=== PATIENT | male | born 1950 | race Caucasian/White ===

== ENCOUNTER → 2018-04-28 08:49 | Outpatient (CLI) | payer MEDICARE, OTHER, SELFPAY ==
[2018-04-28 09:57] LABS: Add Manual Diff / Slide Review NO; Basophils Absolute Auto 100 /uL (0-100); Basophils Percent Auto 0.8 % (0-2); Eosinophils Absolute Auto 200 /uL (0-450); Eosinophils Percent Auto 2.8 % (2-4); Hematocrit 43.5 % (41-53); Hemoglobin 14.2 g/dL (13.5-17.5); Lymphocytes Absolute Auto 2600 /uL (1100-4500); Lymphocytes Percent Auto 32.2 % (25-40); Mean Corpuscular HGB Conc 32.5 % (30-36); Mean Corpuscular Hemoglobin 27.3 PG (26-34); Monocytes Absolute Auto 500 /uL (0-900); Monocytes Percent Auto 6.5 % (3-14); Neutrophils Absolute Auto 4600 /uL (1500-7000); Neutrophils Percent Auto 57.7 % (50-75); Platelet Count 284 X10^3/uL (150-400); Red Blood Cell Count 5.19 X10^6/uL (4.5-5.9); Red Cell Distribution Width 14.9 % (11.6-14.8)
[2018-04-28 10:44] LABS: Alanine Aminotransferase 34 IU/L (21-72); Albumin 4.2 g/dL (3.5-5.0); Albumin Globulin Ratio 1.3 (1.0-2.8); Alkaline Phosphatase 82 U/L (38-126); Aspartate Aminotransferase 29 IU/L (17-59); Bilirubin Total 0.7 mg/dL (0.2-1.3); Blood Urea Nitrogen 20 mg/dL (9-20); Calcium 8.8 mg/dL (8.4-10.2); Carbon Dioxide 29 mmol/L (22-32); Chloride 103 mmol/L (98-107); Cholesterol 155 mg/dL (140-199); Estimated Glomerular Filt Rate > 60.0 mL/min (>60); Globulin 3.2 g/dL (1.7-4.1); Glucose 89 mg/dL (80-110); HDL Cholesterol 40 mg/dL (40-60); HEMOLYSIS < 15 (0-50); LDL Cholesterol Calculated 93 mg/dL (<100); Potassium 4.7 mmol/L (3.4-5.1); Sodium 143 mmol/L (137-145); Total Protein 7.4 g/dL (6.3-8.2); Triglycerides 110 mg/dL (35-150)
[2018-04-28 11:11] LABS: Prostate Specific Antigen Scrn 0.468 ng/mL (0.1-4.0)
[2018-04-28 11:12] LABS: Thyroid Stimulating Hormone 1.66 uIU/mL (0.47-4.68)
== END ==
PROVIDERS: Family Provider Family Medicine; PCP Family Medicine; Visit Provider Family Medicine
DX: E78.2 Mixed hyperlipidemia (principal); Z12.5 Encounter for screening for malignant neoplasm of prostate; Z13.0 Encounter for screening for diseases of the blood and blood-forming organs and certain disorders involving the immune mechanism; Z13.29 Encounter for screening for other suspected endocrine disorder
CPT/HCPCS: 36415; 80053; 80061; 84443; 85025; G0103

== ENCOUNTER → 2018-05-05 11:17 | Outpatient (CLI) | payer MEDICARE, OTHER, SELFPAY ==
--- NOTE | 2018-05-05 11:20 | DI.RAD.S_ITS ---
PROCEDURE: XR CHEST 2V INDICATIONS: cough TECHNIQUE: 2 views of the chest were acquired. COMPARISON: [facility], , CHEST 2 VIEW, 08/03/2012, 10:52. FINDINGS: Surgical changes and devices: None. Lungs and pleura: No pleural effusions or pneumothorax. Lungs are clear. Mediastinum: Mediastinal contours are normal. Heart size is normal. Bones and chest wall: No suspicious bony abnormalities. Soft tissues appear unremarkable. IMPRESSION: Normal for age, source of current cough symptoms is not seen. Dictated by: Dung Garcia M.D. on 05/05/2018 at 12:46 Approved by: Dung Garcia M.D. on 05/05/2018 at 12:47
== END ==
PROVIDERS: Family Provider Family Medicine; PCP Family Medicine; Visit Provider Family Medicine
DX: R05 Cough (principal)
CPT/HCPCS: 71046

== ENCOUNTER 2018-08-12 11:38 | Emergency (ER) | payer MEDICARE, OTHER, SELFPAY ==
[2018-08-12 11:43] VITALS: BP 153/80; PULSE 71; RESP 20; TEMP 36.2; O2SAT 100; BMI 33.7
--- NOTE | 2018-08-12 12:33 | ED.EXTPRO ---
HPI - Extremity Problem <Jennie Lyle PA-C - Last Filed: 08/12/18 21:36> General Chief complaint: Extremity Problem,Nontraumatic Stated complaint: thinks blood clot in his legs. Time Seen by Provider: 08/12/18 12:23 Source: patient Mode of arrival: ambulatory Limitations: no limitations History of Present Illness HPI Narrative: This 67-year-old male states he came in for left lower extremity evaluation on the advice of a nurse friend due to concern for possible blood clot. He states that he noticed a lot of swelling in the left lower leg the day after he returned home from [place] almost 2 weeks ago. He states that was associated with 2 days of chills and sweats and fever up to 102. He noticed crampy pain in the lateral part of the lower leg, and states it was swollen to twice is normal size. He states he had some general malaise but never developed any respiratory symptoms such as cough, no GI symptoms such as diarrhea. He states that this resolved on its own. He states that he did not have any bites. He states no injury to the leg. He states he has had problems with both of his knees but has not been bothering him since his last surgery years ago. He states that he did have some redness along the area at the time as well. he states that this has gradually gotten better, swelling is minimal, and now pain is only present if he puts pressure on the lateral part of the lower leg. He denies pain in the posterior calf. He denies any chest pain or dyspnea, states he is going about his usual activities. he does not have any personal or family history of blood clots Related Data Home Medications Medication Instructions Recorded Confirmed ibuprofen 0 PO BIDP #0 08/25/12 05/05/18 Previous Rx's Medication Instructions Recorded omeprazole 20 mg PO Q DAY PRN PRN #90 tab 12/30/16 atorvastatin 10 mg tablet 10 mg PO HS #90 tab 05/05/18 Review of Systems <CARA Hays Last Filed: 08/12/18 21:36> Review of Systems ROS Unobtainable: All systems reviewed & are unremarkable except as noted in HPI and below PFSH <CARA Hays Last Filed: 08/12/18 21:36> Medical History (Updated 08/12/18 @ 13:19 by Jennie Lyle PA-C) GERD (gastroesophageal reflux disease) (Acute) Mixed hyperlipidemia (12/30/16) Surgical History (Updated 08/12/18 @ 12:51 by Jennie Lyle PA-C) Status post knee surgery Status post knee surgery Presence of surgical screw in hand (Resolved) Family History (Updated 06/16/14 @ 00:00 by Conversion Provider) Father Heart disease Social History Smoking Status: Never smoker Family History (Updated 06/16/14 @ 00:00 by Conversion Provider) Father Heart disease Social History Smoking Status: Never smoker Exam <Jennie Lyle PA-C - Last Filed: 08/12/18 21:36> Narrative Exam Narrative: GENERAL APPEARANCE: Patient sitting comfortably, in no distress. NECK/THYROID: Neck supple LUNGS: Clear to auscultation bilaterally. HEART: Regular rate and rhythm without murmur, normal S1, S2, no S3 or S4. EXTREMITIES: No cyanosis, pedal pulses intact. numerous small varicosities noted bilaterally. There is mild left pedal edema, trace on the right. No proximal edema. No calf tenderness. Tender along the course of the lateral fibular tendon with palpation, no tenderness elsewhere. NEUROLOGIC: Alert and oriented, normal speech and coordination. DERMATOLOGIC: Small exocoriations bilateral LEs, no erythema Initial Vital Signs Initial Vital Signs: Vital Signs Temperature 97.1 F L 08/12/18 11:43 Pulse Rate 71 08/12/18 11:43 Respiratory Rate 20 08/12/18 11:43 Blood Pressure 153/80 H 08/12/18 11:43 Pulse Oximetry 100 08/12/18 11:43 <Maye Osuna DO - Last Filed: 08/14/18 08:28> Initial Vital Signs Initial Vital Signs: Vital Signs Temperature 97.1 F L 08/12/18 11:43 Pulse Rate 71 08/12/18 11:43 Respiratory Rate 20 08/12/18 11:43 Blood Pressure 153/80 H 08/12/18 11:43 Pulse Oximetry 100 08/12/18 11:43 Course <Jennie Lyle PA-C - Last Filed: 08/12/18 21:36> Orders Ordered: ED Orders 08/12/18 12:44 US periph venous low extrem lt Stat Vital Signs - 8 hr 08/12/18 11:43 Temperature 97.1 F L Pulse Rate 71 Respiratory Rate 20 Blood Pressure 153/80 H Pulse Oximetry 100 <Maye Osuna DO - Last Filed: 08/14/18 08:28> Orders Ordered: ED Orders 08/12/18 12:44 US periph venous low extrem lt Stat Vital Signs - 8 hr 08/12/18 11:43 Temperature 97.1 F L Pulse Rate 71 Respiratory Rate 20 Blood Pressure 153/80 H Pulse Oximetry 100 <Maye Osuna DO - Last Filed: 08/14/18 08:28> Imaging Data Venous US: Radiologist's impression: PROCEDURE: US PERIPH VENOUS LOW EXTREM LT INDICATIONS: PAIN, EDEMA TECHNIQUE: Real-time imaging, as well as color and pulse Doppler interrogation, were performed of the lower extremity deep veins from the inguinal ligament to the popliteal fossa. COMPARISON: None. FINDINGS: The common femoral, femoral and popliteal veins are normally compressible, and free of intraluminal thrombus. Color and pulse Doppler demonstrate normal phasic intraluminal flow. There is normal augmentation response to distal compression maneuver. IMPRESSION: No evidence of deep venous thrombosis. Dictated by: Christiano Reaves M.D. on 08/12/2018 at 13:45 Discharge Plan Departure Patient Disposition: Home Clinical Impression: Lower extremity edema, Lower extremity pain, left Discharge Date/Time: 08/12/18 13:33 Interventions: ED Discharge Assessment Last Done: 08/12/18 13:33 Instructions: DI for Peripheral Edema, Unilateral Activity Restrictions/Additional Instructions: Please return as we talked about if you have any acutely worsening symptoms or new symptoms such as chest pain or difficulty breathing. Otherwise, please monitor this to make sure it continues to resolve. Follow up with your PCP in the next couple of weeks for recheck. You may want to wear some compression stockings when your sitting for long periods or flying to help with swelling. Prescriptions: No Action ibuprofen 200 MG tablet PO BIDP Qty: 0 RF: 0 omeprazole 20 MG capsule,delayed release(DR/EC) 20 mg PO Q DAY PRN PRNQty: 90 RF: 3 atorvastatin [Lipitor] 10 mg tablet 10 mg PO HS Qty: 90 RF: 3 Referrals: Michael Goldstein MD [Primary Care Provider] - <Maye Osuna DO - Last Filed: 08/14/18 08:28> Cosign ED Attending Hamlet Attestation: I was immediately available in the department for consultation. Documentation has been reviewed. I agree with assessment and plan.
--- NOTE | 2018-08-12 12:44 | DI.US.S_ITS ---
PROCEDURE: US PERIPH VENOUS LOW EXTREM LT INDICATIONS: PAIN, EDEMA TECHNIQUE: Real-time imaging, as well as color and pulse Doppler interrogation, were performed of the lower extremity deep veins from the inguinal ligament to the popliteal fossa. COMPARISON: None. FINDINGS: The common femoral, femoral and popliteal veins are normally compressible, and free of intraluminal thrombus. Color and pulse Doppler demonstrate normal phasic intraluminal flow. There is normal augmentation response to distal compression maneuver. IMPRESSION: No evidence of deep venous thrombosis. Dictated by: Christiano Reaves M.D. on 08/12/2018 at 13:45 Approved by: Christiano Reaves M.D. on 08/12/2018 at 13:46
--- NOTE | 2018-08-12 12:53 | ED_ITS ---
HPI - Extremity Problem <Jennie Lyle PA-C - Last Filed: 08/12/18 21:36> General Chief complaint: Extremity Problem,Nontraumatic Stated complaint: thinks blood clot in his legs. Time Seen by Provider: 08/12/18 12:23 Source: patient Mode of arrival: ambulatory Limitations: no limitations History of Present Illness HPI Narrative: This 67-year-old male states he came in for left lower extremity evaluation on the advice of a nurse friend due to concern for possible blood clot. He states that he noticed a lot of swelling in the left lower leg the day after he returned home from [place] almost 2 weeks ago. He states that was associated with 2 days of chills and sweats and fever up to 102. He noticed crampy pain in the lateral part of the lower leg, and states it was swollen to twice is normal size. He states he had some general malaise but never developed any respiratory symptoms such as cough, no GI symptoms such as diarrhea. He states that this resolved on its own. He states that he did not have any bites. He states no injury to the leg. He states he has had problems with both of his knees but has not been bothering him since his last surgery years ago. He st ates that he did have some redness along the area at the time as well. he states that this has gradually gotten better, swelling is minimal, and now pain is only present if he puts pressure on the lateral part of the lower leg. He denies pain in the posterior calf. He denies any chest pain or dyspnea, states he is going about his usual activities. he does not have any personal or family history of blood clots Related Data Home Medications Medication Instructions Recorded Confirmed ibuprofen 0 PO BIDP #0 08/25/12 05/05/18 Previous Rx's Medication Instructions Recorded omeprazole 20 mg PO Q DAY PRN PRN #90 tab 12/30/16 atorvastatin 10 mg tablet 10 mg PO HS #90 tab 05/05/18 Review of Systems <Jennie Lyle PA-C - Last Filed: 08/12/18 21:36> Review of Systems ROS Unobtainable: All systems reviewed & are unremarkable except as noted in HPI and below PFSH <Jennie Lyle PA-C - Last Filed: 08/12/18 21:36> Medical History (Updated 08/12/18 @ 13:19 by Jennie Lyle PA-C) GERD (gastroesophageal reflux disease) (Acute) Mixed hyperlipidemia (12/30/16) Surgical History (Updated 08/12/18 @ 12:51 by Jennie Lyle PA-C) Status post knee surgery Status post knee surgery Presence of surgical screw in hand (Resolved) Family History (Updated 06/16/14 @ 00:00 by Conversion Provider) Father Heart disease Social History Smoking Status: Never smoker Family History (Updated 06/16/14 @ 00:00 by Conversion Provider) Father Heart disease Social History Smoking Status: Never smoker Exam <Jennie Lyle PA-C - Last Filed: 08/12/18 21:36> Narrative Exam Narrative: GENERAL APPEARANCE: Patient sitting comfortably, in no distress. NECK/THYROID: Neck supple LUNGS: Clear to auscultation bilaterally. HEART: Regular rate and rhythm without murmur, normal S1, S2, no S3 or S4. EXTREMITIES: No cyanosis, pedal pulses intact. numerous small varicosities noted bilaterally. There is mild left pedal edema, trace on the right. No pr oximal edema. No calf tenderness. Tender along the course of the lateral fibular tendon with palpation, no tenderness elsewhere. NEUROLOGIC: Alert and oriented, normal speech and coordination. DERMATOLOGIC: Small exocoriations bilateral LEs, no erythema Initial Vital Signs Initial Vital Signs: Vital Signs Temperature 97.1 F L 08/12/18 11:43 Pulse Rate 71 08/12/18 11:43 Respiratory Rate 20 08/12/18 11:43 Blood Pressure 153/80 H 08/12/18 11:43 Pulse Oximetry 100 08/12/18 11:43 <Maye Osuna DO - Last Filed: 08/14/18 08:28> Initial Vital Signs Initial Vital Signs: Vital Signs Temperature 97.1 F L 08/12/18 11:43 Pulse Rate 71 08/12/18 11:43 Respiratory Rate 20 08/12/18 11:43 Blood Pressure 153/80 H 08/12/18 11:43 Pulse Oximetry 100 08/12/18 11:43 Course <Jennie Lyle PA-C - Last Filed: 08/12/18 21:36> Orders Ordered: ED Orders 08/12/18 12:44 US periph venous low extrem lt Stat Vital Signs - 8 hr 08/12/18 11:43 Temperature 97.1 F L Pulse Rate 71 Respiratory Rate 20 Blood Pressure 153/80 H Pulse Oximetry 100 <Maye Osuna DO - Last Filed: 08/14/18 08:28> Orders Ordered: ED Orders 08/12/18 12:44 US periph venous low extrem lt Stat Vital Signs - 8 hr 08/12/18 11:43 Temperature 97.1 F L Pulse Rate 71 Respiratory Rate 20 Blood Pressure 153/80 H Pulse Oximetry 100 <Maye Osuna DO - Last Filed: 08/14/18 08:28> Imaging Data Venous US: Radiologist's impression: PROCEDURE: US PERIPH VENOUS LOW EXTREM LT INDICATIONS: PAIN, EDEMA TECHNIQUE: Real-time imaging, as well as color and pulse Doppler interrogation, were performed of the lower extremity deep veins from the inguinal ligament to the popliteal fossa. COMPARISON: None. FINDINGS: The common femoral, femoral and popliteal veins are normally compressible, and free of intraluminal thrombus. Color and pulse Doppler demonstrate normal phasic intraluminal flow. There is normal augmentation response to distal compression maneuver. IMPRESSION: No evidence of deep venous thrombosis. Dictated by: Christiano Reaves M.D. on 08/12/2018 at 13:45 Discharge Plan Departure Patient Disposition: Home Clinical Impression: Lower extremity edema, Lower extremity pain, left Discharge Date/Time: 08/12/18 13:33 Interventions: ED Discharge Assessment Last Done: 08/12/18 13:33 Instructions: DI for Peripheral Edema, Unilateral Activity Restrictions/Additional Instructions: Please return as we talked about if you have any acutely worsening symptoms or new symptoms such as chest pain or difficulty breathing. Otherwise, please monitor this to make sure it continues to resolve. Follow up with your PCP in the next couple of weeks for recheck. You may want to wear some compression stockings when your sitting for long periods or flying to help with swelling. Prescriptions: No Action ibuprofen 200 MG tablet PO BIDP Qty: 0 RF: 0 omeprazole 20 MG capsule,delayed release(DR/EC) 20 mg PO Q DAY PRN PRNQty: 90 RF: 3 atorvastatin [Lipitor] 10 mg tablet 10 mg PO HS Qty: 90 RF: 3 Referrals: Michael Goldstein MD [Primary Care Provider] - <Maye Osuna DO - Last Filed: 08/14/18 08:28> Cosign ED Attending Hamlet Attestation: I was immediately available in the department for consultation. Documentation has been reviewed. I agree with assessment and plan.
[2018-08-12 13:33] VITALS: BP 145/84; PULSE 68; RESP 18; O2SAT 100
== END 2018-08-12 13:33 | disposition home or self-care (01) ==
PROVIDERS: Emergency Provider Internal Medicine; Family Provider Family Medicine; PCP Family Medicine
DX: R60.0 Localized edema (principal); M79.605 Pain in left leg; R50.9 Fever, unspecified
CPT/HCPCS: 93971; 99282; 99283

== ENCOUNTER → 2018-10-07 10:59 | Outpatient (CLI) | payer MEDICARE, OTHER, SELFPAY ==
--- NOTE | 2018-10-07 11:01 | DI.US.S_ITS ---
PROCEDURE: US PERIPH VENOUS LOW EXTREM RT INDICATIONS: RIGHT LOWER EXTREMITY SWELLING TECHNIQUE: Real-time imaging, as well as color and pulse Doppler interrogation, were performed of the lower extremity deep veins from the inguinal ligament to the popliteal fossa. COMPARISON: None. FINDINGS: The common femoral, femoral and popliteal veins are normally compressible, and free of intraluminal thrombus. Color and pulse Doppler demonstrate normal phasic intraluminal flow. There is normal augmentation response to distal compression maneuver. Right groin lymph nodes are present the largest measuring 12 mm in short axis. IMPRESSION: No visualized deep venous thrombosis. Dictated by: Tyesha Estrella M.D. on 10/07/2018 at 13:27 Approved by: Tyesha Estrella M.D. on 10/07/2018 at 13:28
== END ==
PROVIDERS: PCP Family Medicine; Visit Provider Family Medicine
DX: M79.89 Other specified soft tissue disorders (principal)
CPT/HCPCS: 93971

== ENCOUNTER → 2019-05-03 12:07 | Outpatient (CLI) | payer MEDICARE, OTHER, SELFPAY ==
--- NOTE | 2019-05-03 12:17 | DI.RAD.S_ITS ---
PROCEDURE: XR KNEE RT 3V INDICATIONS: knee pain TECHNIQUE: 3 views of the knee were acquired. COMPARISON: [facility], , KNEE 1 VIEW BILATERAL, 11/10/2016, 14:03. FINDINGS: Bones: No fractures or dislocations. No suspicious bony lesions. There is moderate medial mild to moderate patellofemoral compartment narrowing. Dolores-articular osteophytes are noted adjacent to the medial compartment most prominently. No erosions. Interval progression is noted. Soft tissues: Moderate joint effusion. No suspicious soft tissue calcifications. IMPRESSION: Moderate effusion with predominately medial compartment narrowing suggestive of osteoarthritis. Dictated by: Tyesha Estrella M.D. on 05/03/2019 at 16:10 Approved by: Tyesha Estrella M.D. on 05/03/2019 at 16:11
== END ==
PROVIDERS: PCP Family Medicine; Visit Provider Family Medicine
DX: M25.561 Pain in right knee (principal); M25.461 Effusion, right knee
CPT/HCPCS: 73562

== ENCOUNTER → 2019-05-20 07:20 | Outpatient (CLI) | payer MEDICARE, OTHER, SELFPAY ==
--- NOTE | 2019-05-20 07:21 | DI.MRI.S_ITS ---
PROCEDURE: MR KNEE RT WO CON INDICATIONS: knee pain TECHNIQUE: Noncontrast sagittal PD fast spin echo and T2 fast spin echo with fat saturation, sagittal 3-D FLASH with fat saturation; coronal T1 spin echo and PD fast spin echo with fat saturation, and axial PD fast spin echo with fat saturation through the knee. COMPARISON: [facility], CR, KNEE 1 VIEW BILATERAL, 11/10/2016, 14:03. [facility], MR, KNEE WITHOUT CONTRAST, 09/03/2012, 8:24. FINDINGS: Image quality: Excellent. Menisci: Ill-defined tear of the medial meniscal posterior horn and body, with macerated appearance and near-complete extrusion of the body. Lateral meniscus intact. Cruciate ligaments: Anterior cruciate ligament appears intact. Posterior cruciate ligament appears intact. Medial structures: There is medial bowing of the medial collateral ligament, with mild internal signal changes and no complete rupture. There is adjacent soft tissue edema. The appearance could reflect reactive changes to medial compartment pathology, versus low-grade sprain of the MCL. Pes anserinus tendons appear grossly unremarkable. Semimembranosus tendon appears intact. Lateral structures: The lateral collateral ligament intact. Biceps femoris tendon appears intact. Popliteus tendon grossly unremarkable. Iliotibial band appears intact. Anterior structures: Quadriceps tendon mildly thickened although this finding technical age indeterminate. Thickening of the medial patellofemoral ligament, with adjacent soft tissue edema. The lateral patellofemoral ligament appears intact. Chronic-appearing low-grade diffuse patellar tendinopathy Hoffa's fat pad unremarkable. Bones and cartilage: No focal marrow contusion or discrete low signal fracture line. Within the medial compartment, full-thickness femoral and tibial articular cartilage loss. Prominent subchondral marrow edema present in the medial tibial plateau which is likely reactive (rather than marrow contusion) Within the lateral compartment, low-grade diffuse femoral cartilage loss. The tibial cartilage appears grossly intact although there is some intrasubstance signal change centrally. Within the patellofemoral compartment, no focal articular cartilage defect Joint space: No pathologic joint effusion. No Naik's cyst identified. No specific evidence of intra-articular loose body. IMPRESSION: Ill-defined macerated tear involving the posterior horn and body of the medial meniscus with near-complete extrusion. Mild distal quadriceps tendinopathy Chronic appearing diffuse patellar tendinopathy Severe medial compartment joint degeneration. Marked subchondral marrow edema present in the medial tibial plateau probably reactive to joint degeneration Sprain of the medial patellofemoral ligament with adjacent soft tissue edema Dictated by: Christiano Reaves M.D. on 05/20/2019 at 9:46 Approved by: Christiano Reaves M.D. on 05/20/2019 at 10:57
== END ==
PROVIDERS: PCP Family Medicine; Referring Provider Family Medicine; Visit Provider Family Medicine
DX: M25.561 Pain in right knee (principal); S83.241A Other tear of medial meniscus, current injury, right knee, initial encounter; M17.11 Unilateral primary osteoarthritis, right knee; R60.0 Localized edema
CPT/HCPCS: 73721

== ENCOUNTER → 2019-10-05 10:54 | Outpatient (CLI) | payer MEDICARE, OTHER, SELFPAY ==
[2019-10-05 11:36] LABS: Add Manual Diff / Slide Review NO; Basophils Absolute Auto 100 /uL (0-100); Basophils Percent Auto 0.9 % (0-2); Eosinophils Absolute Auto 100 /uL (0-450); Eosinophils Percent Auto 1.4 % (2-4); Hematocrit 42.3 % (41-53); Lymphocytes Absolute Auto 2700 /uL (1100-4500); Lymphocytes Percent Auto 28.4 % (25-40); Mean Corpuscular HGB Conc 33.1 % (30-36); Mean Corpuscular Hemoglobin 27.7 PG (26-34); Mean Corpuscular Volume 83.8 fL (80-100); Monocytes Absolute Auto 600 /uL (0-900); Monocytes Percent Auto 6.4 % (3-14); Neutrophils Absolute Auto 5900 /uL (1500-7000); Neutrophils Percent Auto 62.9 % (50-75); Platelet Count 276 X10^3/uL (150-400); Red Blood Cell Count 5.05 X10^6/uL (4.5-5.9); Red Cell Distribution Width 16.5 % (11.6-14.8); White Blood Cell Count 9.4 X10^3/uL (4.5-11.0)
[2019-10-05 12:13] LABS: Alanine Aminotransferase 17 IU/L (<50); Albumin Globulin Ratio 1.5 (1.0-2.8); Alkaline Phosphatase 95 U/L (38-126); Aspartate Aminotransferase 24 IU/L (17-59); BUN Creatinine Ratio 20.6 (6-22); Bilirubin Total 0.5 mg/dL (0.2-1.3); Blood Urea Nitrogen 20 mg/dL (9-20); Calcium 9.2 mg/dL (8.4-10.2); Carbon Dioxide 28 mmol/L (22-32); Chloride 105 mmol/L (98-107); Estimated Glomerular Filt Rate > 60.0 mL/min (>60); Globulin 2.7 g/dL (1.7-4.1); Glucose 92 mg/dL (80-110); HEMOLYSIS < 15 (0-50); Potassium 4.9 mmol/L (3.4-5.1); Sodium 139 mmol/L (137-145); Total Protein 6.7 g/dL (6.3-8.2)
[2019-10-05 12:42] LABS: Thyroid Stimulating Hormone 1.53 uIU/mL (0.47-4.68)
== END ==
PROVIDERS: PCP Family Medicine; Referring Provider Family Medicine; Visit Provider Family Medicine
DX: I48.92 Unspecified atrial flutter (principal)
CPT/HCPCS: 36415; 80053; 84443; 85025

== ENCOUNTER → 2019-10-05 11:19 | Outpatient (CLI) | payer MEDICARE, OTHER, SELFPAY ==
--- NOTE | 2019-10-27 09:16 | P.HOLT.S_ITS ---
Slotter Operator Helper Report Referral & Results Date Patient Seen: 10/05/19 Requesting provider: Michael Goldstein Indication: AFib Duration of monitoring (days): 14 Diary information: There were 2 patient triggered events and no patient diary entries Both triggered events were associated both with sinus rhythm and atrial fibrillation/flutter, within 45 seconds of the trigger being pressed Data: Minimum heart rate was 40 beats per minute at 03:17 on 10/08/2019 during an episode of atrial fibrillation Maximum sinus heart rate was 137 beats per minute at 13:34 on 10/17/2019 Maximum overall heart rate was 212 beats per minute at 16:18 on 10/07/2019 during atrial fibrillation/flutter Less than 1% of identified beats or either ventricular supraventricular ectopic in origin Patient did have approximately 20% of monitor time with atrial fibrillation/flutter with heart rates ranging from 48 beats per minute at the minimum as above to the maximum of 212 as above. Longest episode lasted 20 hours 34 minutes Impression: Patient with atrial fibrillation/flutter comprising at least 20% of the time during this monitoring. Including a 20 hour run of atrial fibrillation/flutter. Patient with both bradycardia and tachycardia during runs of atrial fibrillation Cardiology consultation recommended
== END ==
PROVIDERS: PCP Family Medicine; Referring Provider Family Medicine; Visit Provider Family Medicine
DX: I48.91 Unspecified atrial fibrillation (principal)
CPT/HCPCS: 0296T; 0298T

== ENCOUNTER → 2019-12-29 12:05 | Outpatient (CLI) | payer MEDICARE, OTHER, SELFPAY ==
[2019-12-29 12:49] LABS: Add Manual Diff / Slide Review NO; Basophils Absolute Auto 100 /uL (0-100); Basophils Percent Auto 0.8 % (0-2); Eosinophils Absolute Auto 200 /uL (0-450); Eosinophils Percent Auto 2.2 % (2-4); Hematocrit 41.3 % (41-53); Hemoglobin 13.5 g/dL (13.5-17.5); Lymphocytes Absolute Auto 2400 /uL (1100-4500); Lymphocytes Percent Auto 33.8 % (25-40); Mean Corpuscular HGB Conc 32.8 % (30-36); Mean Corpuscular Hemoglobin 27.9 PG (26-34); Monocytes Absolute Auto 500 /uL (0-900); Monocytes Percent Auto 7.2 % (3-14); Neutrophils Absolute Auto 4000 /uL (1500-7000); Platelet Count 246 X10^3/uL (150-400); Red Blood Cell Count 4.86 X10^6/uL (4.5-5.9); Red Cell Distribution Width 14.5 % (11.6-14.8); White Blood Cell Count 7.2 X10^3/uL (4.5-11.0)
[2019-12-29 13:17] LABS: Alanine Aminotransferase 18 IU/L (<50); Albumin 3.9 g/dL (3.5-5.0); Albumin Globulin Ratio 1.4 (1.0-2.8); Alkaline Phosphatase 88 U/L (38-126); Aspartate Aminotransferase 25 IU/L (17-59); BUN Creatinine Ratio 18.3 (6-22); Bilirubin Total 0.5 mg/dL (0.2-1.3); Blood Urea Nitrogen 17 mg/dL (9-20); Carbon Dioxide 27 mmol/L (22-32); Chloride 104 mmol/L (98-107); Estimated Glomerular Filt Rate > 60.0 mL/min (>60); Globulin 2.8 g/dL (1.7-4.1); Glucose 90 mg/dL (80-110); HEMOLYSIS < 15 (0-50); Potassium 4.6 mmol/L (3.4-5.1); Sodium 139 mmol/L (137-145); Total Protein 6.7 g/dL (6.3-8.2)
[2019-12-29 13:57] LABS: Thyroid Stimulating Hormone 1.38 uIU/mL (0.47-4.68)
== END ==
PROVIDERS: PCP Family Medicine; Referring Provider Family Medicine; Visit Provider Family Medicine
DX: I48.92 Unspecified atrial flutter (principal); E78.5 Hyperlipidemia, unspecified
CPT/HCPCS: 36415; 80053; 84443; 85025

== ENCOUNTER → 2020-03-15 10:51 | Outpatient (CLI) | payer MEDICARE, OTHER, SELFPAY ==
[2020-03-15 11:25] LABS: Cholesterol 163 mg/dL (140-199); HDL Cholesterol 43 mg/dL (40-60); LDL Cholesterol Calculated 93 mg/dL (<100); Triglycerides 134 mg/dL (35-150)
== END ==
PROVIDERS: PCP Family Medicine; Referring Provider Family Medicine; Visit Provider Family Medicine
DX: E78.2 Mixed hyperlipidemia (principal)
CPT/HCPCS: 36415; 80061

== ENCOUNTER → 2020-03-19 10:52 | Outpatient (CLI) | payer MEDICARE, OTHER, SELFPAY ==
[2020-03-19 12:45] LABS: BUN Creatinine Ratio 23.2 (6-22); Blood Urea Nitrogen 22 mg/dL (9-20); Calcium 8.8 mg/dL (8.4-10.2); Carbon Dioxide 29 mmol/L (22-32); Chloride 106 mmol/L (98-107); Estimated Glomerular Filt Rate > 60.0 mL/min (>60); Glucose 93 mg/dL (80-110); HEMOLYSIS < 15 (0-50); Potassium 4.6 mmol/L (3.4-5.1); Sodium 139 mmol/L (137-145)
== END ==
PROVIDERS: PCP Family Medicine; Referring Provider Family Medicine; Visit Provider Family Medicine
DX: I48.92 Unspecified atrial flutter (principal)
CPT/HCPCS: 80048

== ENCOUNTER → 2020-03-21 10:33 | Outpatient (CLI) | payer MEDICARE, OTHER, SELFPAY ==
--- NOTE | 2020-03-21 10:42 | DI.CT.S_ITS ---
PROCEDURE: CT CHEST WO CON INDICATIONS: Right upper lobe nodule TECHNIQUE: Noncontrast 5 mm thick sections acquired from the pulmonary apices to the posterior costophrenic angles. 1 mm lung window, 5 mm thick coronal and sagittal and 7 mm axial MIP reformats were then acquired. For radiation dose reduction, the following was used: automated exposure control, adjustment of mA and/or kV according to patient size. COMPARISON: [facility], CT, CT ANGIO CHEST PE, 06/26/2019, 22:56. FINDINGS: Image quality: Excellent. Lungs and pleura: A previous 8 mm right upper lobe pulmonary nodule has resolved. No suspicious pulmonary nodules. No acute air space opacities. No pleural effusions or pneumothorax. Central and peripheral airways are patent and normal in caliber. Mediastinum: Heart size is normal. Trace pericardial effusion. Moderate coronary artery calcifications. No mediastinal adenopathy by size criteria. Thoracic aorta and central pulmonary arteries are normal in size. Esophagus is normal in caliber. No hiatal hernia. Bones and chest wall: No suspicious bony lesions. No vertebral body compression fractures. No axillary or supraclavicular adenopathy by size criteria. Thyroid gland is unremarkable. Abdomen: Visualized upper abdominal solid organs and bowel loops appear normal in the absence of contrast. IMPRESSION: 1. Resolution of previous 8 mm pulmonary nodule, right upper lobe. No further follow-up required. Consistent with resolution of infectious or inflammatory pulmonary nodule. 2. Moderate coronary artery calcifications. Dictated by: Wilmer Omer M.D. on 03/21/2020 at 11:02 Approved by: Wilmer Omer M.D. on 03/21/2020 at 11:06
== END ==
PROVIDERS: PCP Family Medicine; Referring Provider Family Medicine; Visit Provider Family Medicine
DX: R91.1 Solitary pulmonary nodule (principal); I25.10 Atherosclerotic heart disease of native coronary artery without angina pectoris
CPT/HCPCS: 71250

== ENCOUNTER → 2020-05-30 09:03 | Outpatient (CLI) | payer MEDICARE, OTHER, SELFPAY ==
[2020-05-30 10:02] LABS: COVID19 -Nasal RAPID Negative (Negative)
== END ==
PROVIDERS: PCP Family Medicine; Visit Provider Surgery
DX: Z20.822 Contact with and (suspected) exposure to COVID-19 (principal)
CPT/HCPCS: 87635; C9803

== ENCOUNTER 2020-05-31 11:55 | Day surgery (SDC) | payer MEDICARE, OTHER, SELFPAY ==
[2020-05-31 12:15] VITALS: BP 144/89; PULSE 96; RESP 20; TEMP 36.4; O2SAT 98; BMI 33.5
[2020-05-31] MEDS: LACTATED RINGERS 1,000 ML 200 ML IV (12:38)
--- NOTE | 2020-05-31 13:06 | PM.PREOP ---
Pre-operative Note Interval Note History & Physical reviewed/Exam performed by Physician: Yes Changes to H&P: No
[2020-05-31] MEDS: fentaNYL 250 MCG/5 ML INJ IV (13:15)
[2020-05-31] MEDS: MIDAZOLAM 5 MG/5 ML VIAL IV (13:15)
--- NOTE | 2020-05-31 13:47 | PM.OP.ENDO ---
Operative Date/Time/Diagnoses Date of procedure: 05/31/20 Time of procedure: 13:47 Pre-op diagnosis: Personal history of colonic polyps Post-op diagnosis: same Procedure & Clinicians Study performed: Colonoscopy Polypectomy Same procedure as scheduled: Yes Indications: 69-year-old man last colonoscopy 6 years ago personal history of colonic polyps Surgeon: Rubén Marie Procedure Notes Procedure in detail: Medications: Conscious sedation using 5mg IV midazolam and 150mcg IV of fentanyl The history and physical was performed/updated and the patient is ASA class is 2. The procedure was discussed in detail with the patient. Potential risks complications including infection, bleeding, missed diagnosis, perforation, need for surgery, and were explained. Their questions were answered and informed consent was obtained. Patient was brought to the procedure room and placed standard monitoring equipment. The patient's vital signs were monitored continuously throughout the entire procedure. Prior to starting time-out was performed. The patient was placed in the left lateral recumbent position. Procedural sedation was administered. Examination began with a thorough inspection of the perianal area there was no evidence of fissures, fistulae, external hemorrhoids or cutaneous malignancy. The colonoscopy scope was then placed into the anal canal and was advanced to the cecum, which was identified by the ileocecal valve, the appendiceal orifice and the confluence of the taenia. The scope was then slowly withdrawn examining colon thoroughly in all directions, irrigating it of any residual stool. 1 cm rectal polyp removed with hot snare. Sigmoid diverticulosis The patient tolerated the procedure well. They will be discharged once criteria are met. The prep was of good/excellent quality. The withdrawl time was 10 minutes. The sedation time was 34 minutes. Specimen(s): other (Rectal polyp) Complications: none Impression: Colonic polyp Post-procedure Recommendations: Colonscopy in 5 years Disposition: same day surgery
[2020-05-31 13:49] VITALS: BP 111/75; PULSE 88; RESP 14; TEMP 36.5; O2SAT 96
[2020-05-31 13:54] VITALS: BP 127/72; PULSE 89; RESP 14; O2SAT 96
[2020-05-31 14:00] VITALS: BP 112/66; PULSE 99; RESP 10; O2SAT 99
[2020-05-31 14:06] VITALS: BP 122/86; PULSE 83; RESP 16; O2SAT 98
[2020-05-31 14:07] VITALS: BP 136/82; PULSE 89; RESP 15; TEMP 36.9; O2SAT 98
== END 2020-05-31 14:25 | disposition home or self-care (01) ==
PROVIDERS: PCP Family Medicine; Referring Provider Surgery; Visit Provider Surgery
PROC: 0DJD8ZZ Inspection of Lower Intestinal Tract, Via Natural or Artificial Opening Endoscopic (ICD-10-PCS; CPT 45378; principal; 2020-05-31 13:00)
DX: Z12.11 Encounter for screening for malignant neoplasm of colon (principal); Z86.010 Personal history of colon polyps; K21.9 Gastro-esophageal reflux disease without esophagitis; E78.2 Mixed hyperlipidemia; I48.91 Unspecified atrial fibrillation; Z86.718 Personal history of other venous thrombosis and embolism; Z79.01 Long term (current) use of anticoagulants; K57.30 Diverticulosis of large intestine without perforation or abscess without bleeding; K62.1 Rectal polyp
CPT/HCPCS: 45385; 99152; 99153; J2250; J3010

== ENCOUNTER → 2020-10-01 10:20 | Outpatient (CLI) | payer MEDICARE, OTHER, SELFPAY ==
[2020-10-01 13:07] LABS: COVID19 -Nasal RAPID Negative (Negative)
== END ==
PROVIDERS: PCP Family Medicine; Referring Provider Physician Assistant; Visit Provider Physician Assistant
DX: Z01.812 Encounter for preprocedural laboratory examination (principal); Z20.822 Contact with and (suspected) exposure to COVID-19
CPT/HCPCS: 87635; C9803

== ENCOUNTER → 2021-09-11 08:51 | Outpatient (CLI) | payer MEDICARE, OTHER, SELFPAY ==
[2021-09-11 10:48] LABS: Add Manual Diff / Slide Review NO; Basophils Absolute Auto 100 /uL (0-100); Basophils Percent Auto 0.9 % (0-2); Eosinophils Absolute Auto 200 /uL (0-450); Eosinophils Percent Auto 2.5 % (2-4); Hematocrit 41.1 % (41-53); Hemoglobin 13.7 g/dL (13.5-17.5); Lymphocytes Absolute Auto 1900 /uL (1100-4500); Lymphocytes Percent Auto 25.6 % (25-40); Mean Corpuscular HGB Conc 33.4 % (30-36); Mean Corpuscular Hemoglobin 28.7 PG (26-34); Mean Corpuscular Volume 85.9 fL (80-100); Monocytes Absolute Auto 400 /uL (0-900); Monocytes Percent Auto 5.7 % (3-14); Neutrophils Absolute Auto 4900 /uL (1500-7000); Neutrophils Percent Auto 65.3 % (50-75); Platelet Count 241 X10^3/uL (150-400); Red Blood Cell Count 4.78 X10^6/uL (4.5-5.9); Red Cell Distribution Width 13.9 % (11.6-14.8); White Blood Cell Count 7.6 X10^3/uL (4.5-11.0)
[2021-09-11 11:24] LABS: BUN Creatinine Ratio 23.1 (6-22); Blood Urea Nitrogen 21 mg/dL (9-20); Calcium 8.8 mg/dL (8.4-10.2); Carbon Dioxide 28 mmol/L (22-32); Chloride 107 mmol/L (98-107); Cholesterol 128 mg/dL (140-199); Estimated Glomerular Filt Rate > 60 mL/min (>60); Glucose 91 mg/dL (80-110); HDL Cholesterol 40 mg/dL (40-60); HEMOLYSIS < 15 (0-50); LDL Cholesterol Calculated 66 mg/dL (<100); Potassium 4.8 mmol/L (3.4-5.1); Sodium 140 mmol/L (137-145); Triglycerides 108 mg/dL (35-150)
== END ==
PROVIDERS: PCP Family Medicine; Referring Provider Internal Medicine Cardiovascular Disease; Visit Provider Internal Medicine Cardiovascular Disease
DX: E78.5 Hyperlipidemia, unspecified (principal); Z79.01 Long term (current) use of anticoagulants; I48.19 Other persistent atrial fibrillation
CPT/HCPCS: 36415; 80048; 80061; 85025

== ENCOUNTER 2022-03-29 16:09 | Emergency (ER) | payer MEDICARE, OTHER, SELFPAY ==
[2022-03-29 16:18] VITALS: BP 167/86; PULSE 80; RESP 18; TEMP 36.2; O2SAT 97; BMI 33.0
--- NOTE | 2022-03-29 16:19 | DI.RAD.S_ITS ---
PROCEDURE: XR TIBIA FUBULA RT 2V INDICATIONS: trauma TECHNIQUE: 2 views of the tibia and fibula were acquired. COMPARISON: None. FINDINGS: Bones: Medial unicondylar knee arthroplasty partially seen. No acute fracture. No dislocation. No convincing osseous erosion. Soft tissues: Soft tissues are not well evaluated radiographically. No suspicious calcifications. IMPRESSION: No acute osseous abnormality. If there is high concern for further derangement, consider MRI evaluation. Dictated by: Paulo Puente M.D. on 03/29/2022 at 16:14 Approved by: Paulo Puente M.D. on 03/29/2022 at 16:15
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
[2022-03-29 16:46] LABS: Add Manual Diff / Slide Review NO; Basophils Absolute Auto 0 /uL (0-100); Basophils Percent Auto 0.4 % (0-2); Eosinophils Absolute Auto 100 /uL (0-450); Hemoglobin 14.1 g/dL (13.5-17.5); Lymphocytes Absolute Auto 2300 /uL (1100-4500); Lymphocytes Percent Auto 18.2 % (25-40); Mean Corpuscular HGB Conc 32.8 % (30-36); Mean Corpuscular Hemoglobin 27.8 PG (26-34); Mean Corpuscular Volume 84.9 fL (80-100); Monocytes Absolute Auto 700 /uL (0-900); Monocytes Percent Auto 5.8 % (3-14); Neutrophils Absolute Auto 9600 /uL (1500-7000); Neutrophils Percent Auto 74.6 % (50-75); Platelet Count 277 X10^3/uL (150-400); Red Blood Cell Count 5.07 X10^6/uL (4.5-5.9); Red Cell Distribution Width 14.6 % (11.6-14.8); White Blood Cell Count 12.8 X10^3/uL (4.5-11.0)
[2022-03-29 16:47] LABS: COVID19 -Nasal RAPID Negative (Negative)
[2022-03-29 16:53] LABS: PTT Partial Thromboplastin Tim 31 SECONDS (26-36)
[2022-03-29] MEDS: CEFAZOLIN VIAL 1 GM in SODIUM CHLORIDE 0.9% 100 ML IV (16:53)
[2022-03-29 16:54] LABS: Alanine Aminotransferase 31 IU/L (<50); Albumin Globulin Ratio 1.2 (1.0-2.8); Alkaline Phosphatase 104 U/L (38-126); Aspartate Aminotransferase 30 IU/L (17-59); BUN Creatinine Ratio 20.5 (6-22); Bilirubin Total 0.4 mg/dL (0.2-1.3); Blood Urea Nitrogen 24 mg/dL (9-20); Calcium 8.5 mg/dL (8.4-10.2); Carbon Dioxide 25 mmol/L (22-32); Chloride 105 mmol/L (98-107); Estimated Glomerular Filt Rate > 60 mL/min (>60); Globulin 3.3 g/dL (1.7-4.1); Glucose 107 mg/dL (80-110); HEMOLYSIS < 15 (0-50); Potassium 3.9 mmol/L (3.4-5.1); Sodium 140 mmol/L (137-145); Total Protein 7.3 g/dL (6.3-8.2)
[2022-03-29] MEDS: TET,DIPH,PERTUSS(ACELL),VAC/PF 0.5 ML SYRINGE IM (16:54)
[2022-03-29] MEDS: HYDROMORPHONE 0.5 MG INJ IV (16:55)
[2022-03-29] MEDS: LIDOCAINE 2% INJ SDV 5 ML (17:50)
== END 2022-03-29 18:19 | disposition home or self-care (01) ==
PROVIDERS: Emergency Provider Nurse Practitioner Critical Care Medicine; PCP Family Medicine
DX: S81.812A Laceration without foreign body, left lower leg, initial encounter (principal); I48.20 Chronic atrial fibrillation, unspecified; Z79.01 Long term (current) use of anticoagulants; Z20.822 Contact with and (suspected) exposure to COVID-19; Z23 Encounter for immunization
CPT/HCPCS: 73590; 80053; 85025; 85610; 85730; 87635; 90471; 96365; 96375; 99283; 99284; C9803; 90715; J0690; J1170

== ENCOUNTER 2022-03-31 11:24 | Emergency (ER) | payer MEDICARE, OTHER, SELFPAY ==
[2022-03-31 11:39] VITALS: BP 107/67; PULSE 91; RESP 14; TEMP 36.5; O2SAT 99
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
== END 2022-03-31 17:07 | disposition home or self-care (01) ==
PROVIDERS: Emergency Provider Student in an Organized Health Care Education/Training Program; PCP Family Medicine
DX: Z48.00 Encounter for change or removal of nonsurgical wound dressing (principal)
CPT/HCPCS: 99281; 99282

== ENCOUNTER → 2022-04-09 08:16 | Outpatient (CLI) | payer MEDICARE, OTHER, SELFPAY | PROVIDERS: Family Provider Nurse Practitioner Critical Care Medicine; PCP Family Medicine; Referring Provider Nurse Practitioner Critical Care Medicine; Visit Provider Surgery | DX: S81.811A Laceration without foreign body, right lower leg, initial encounter (principal); R60.0 Localized edema; L53.9 Erythematous condition, unspecified | CPT/HCPCS: 99204; 99213 ==

== ENCOUNTER → 2022-04-10 09:08 | Outpatient (CLI) | payer MEDICARE, OTHER, SELFPAY ==
--- NOTE | 2022-04-10 09:09 | DI.US.S_ITS ---
PROCEDURE: US [facility] VENOUS LOW EXTREM RT INDICATIONS: Soft tissue swelling, eval for DVT TECHNIQUE: Real-time imaging, as well as color and pulse Doppler interrogation, were performed of the lower extremity deep veins from the inguinal ligament to the popliteal fossa. COMPARISON: [facility], [facility] VENOUS LOW EXTREM RT, 10/07/2018, 11:19. FINDINGS: The common femoral, femoral and popliteal veins are normally compressible, and free of intraluminal thrombus. Color and pulse Doppler demonstrate normal phasic intraluminal flow. There is normal augmentation response to distal compression maneuver. IMPRESSION: Negative for deep venous thrombosis. Dictated by: Adis Lopez M.D. on 04/10/2022 at 11:51 Approved by: Adis Lopez M.D. on 04/10/2022 at 11:52
== END ==
PROVIDERS: Family Provider Nurse Practitioner Critical Care Medicine; PCP Family Medicine; Referring Provider Surgery; Visit Provider Surgery
DX: M79.89 Other specified soft tissue disorders (principal)
CPT/HCPCS: 93971

== ENCOUNTER → 2022-04-11 12:40 | Outpatient (CLI) | payer MEDICARE, OTHER, SELFPAY | PROVIDERS: Family Provider Nurse Practitioner Critical Care Medicine; PCP Family Medicine; Referring Provider Family Medicine; Visit Provider Surgery | DX: S81.811A Laceration without foreign body, right lower leg, initial encounter (principal); R60.0 Localized edema | CPT/HCPCS: 97606 ==

== ENCOUNTER → 2022-04-15 09:19 | Outpatient (CLI) | payer MEDICARE, OTHER, SELFPAY | PROVIDERS: Family Provider Nurse Practitioner Critical Care Medicine; PCP Family Medicine; Referring Provider Nurse Practitioner Critical Care Medicine; Visit Provider Surgery | DX: S81.801A Unspecified open wound, right lower leg, initial encounter (principal); R22.41 Localized swelling, mass and lump, right lower limb; I48.91 Unspecified atrial fibrillation | CPT/HCPCS: 97606; 99213 ==

== ENCOUNTER → 2022-04-18 09:45 | Outpatient (CLI) | payer MEDICARE, OTHER, SELFPAY | PROVIDERS: Family Provider Nurse Practitioner Critical Care Medicine; PCP Family Medicine; Referring Provider Family Medicine; Visit Provider Nurse Practitioner Family | DX: S81.811A Laceration without foreign body, right lower leg, initial encounter (principal); R60.0 Localized edema | CPT/HCPCS: 97605 ==

== ENCOUNTER → 2022-04-22 09:12 | Outpatient (CLI) | payer MEDICARE, OTHER, SELFPAY | PROVIDERS: Family Provider Nurse Practitioner Critical Care Medicine; PCP Family Medicine; Referring Provider Nurse Practitioner Critical Care Medicine; Visit Provider Surgery | DX: S81.811A Laceration without foreign body, right lower leg, initial encounter (principal); R22.41 Localized swelling, mass and lump, right lower limb; Z86.718 Personal history of other venous thrombosis and embolism | CPT/HCPCS: 17250; 87070; 87075; 87205; 99213 ==

== ENCOUNTER → 2022-04-25 09:16 | Outpatient (CLI) | payer MEDICARE, OTHER, SELFPAY | PROVIDERS: Family Provider Nurse Practitioner Critical Care Medicine; PCP Family Medicine; Referring Provider Nurse Practitioner Critical Care Medicine; Visit Provider Nurse Practitioner Family | DX: S81.811A Laceration without foreign body, right lower leg, initial encounter (principal); R60.0 Localized edema | CPT/HCPCS: 97605 ==

== ENCOUNTER → 2022-04-29 08:41 | Outpatient (CLI) | payer MEDICARE, OTHER, SELFPAY | PROVIDERS: Family Provider Nurse Practitioner Critical Care Medicine; PCP Family Medicine; Referring Provider Nurse Practitioner Critical Care Medicine; Visit Provider Surgery | DX: S81.801A Unspecified open wound, right lower leg, initial encounter (principal); R22.41 Localized swelling, mass and lump, right lower limb | CPT/HCPCS: 97605; 99213 ==

== ENCOUNTER → 2022-05-02 08:29 | Outpatient (CLI) | payer MEDICARE, OTHER, SELFPAY ==
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
== END ==
PROVIDERS: Family Provider Nurse Practitioner Critical Care Medicine; PCP Family Medicine; Referring Provider Surgery; Visit Provider Surgery
DX: S81.812A Laceration without foreign body, left lower leg, initial encounter (principal); X58.XXXA Exposure to other specified factors, initial encounter
CPT/HCPCS: 93926

== ENCOUNTER → 2022-05-06 09:28 | Outpatient (CLI) | payer MEDICARE, OTHER, SELFPAY | PROVIDERS: Family Provider Nurse Practitioner Critical Care Medicine; PCP Family Medicine; Referring Provider Family Medicine; Visit Provider Surgery | DX: S81.811A Laceration without foreign body, right lower leg, initial encounter (principal); R60.0 Localized edema; Z86.718 Personal history of other venous thrombosis and embolism | CPT/HCPCS: 17250; 99212; 99213 ==

== ENCOUNTER → 2022-05-20 10:23 | Outpatient (CLI) | payer MEDICARE, OTHER, SELFPAY | PROVIDERS: Family Provider Nurse Practitioner Critical Care Medicine; PCP Family Medicine; Referring Provider Family Medicine; Visit Provider Surgery | DX: S81.811A Laceration without foreign body, right lower leg, initial encounter (principal); Z86.718 Personal history of other venous thrombosis and embolism; Z79.01 Long term (current) use of anticoagulants | CPT/HCPCS: 17250; 99213 ==

== ENCOUNTER → 2022-06-03 08:38 | Outpatient (CLI) | payer MEDICARE, OTHER, SELFPAY | PROVIDERS: Family Provider Nurse Practitioner Critical Care Medicine; PCP Family Medicine; Referring Provider Family Medicine; Visit Provider Surgery | DX: S81.811A Laceration without foreign body, right lower leg, initial encounter (principal); R60.0 Localized edema | CPT/HCPCS: 17250; 99213 ==

== ENCOUNTER → 2022-06-17 08:38 | Outpatient (CLI) | payer MEDICARE, OTHER, SELFPAY | PROVIDERS: Family Provider Nurse Practitioner Critical Care Medicine; PCP Family Medicine; Referring Provider Family Medicine; Visit Provider Surgery | DX: S81.811A Laceration without foreign body, right lower leg, initial encounter (principal); R60.0 Localized edema; Z86.718 Personal history of other venous thrombosis and embolism; Z79.01 Long term (current) use of anticoagulants; Z96.651 Presence of right artificial knee joint | CPT/HCPCS: 99213 ==

== ENCOUNTER → 2022-07-01 08:41 | Outpatient (CLI) | payer MEDICARE, OTHER, SELFPAY | PROVIDERS: Family Provider Nurse Practitioner Critical Care Medicine; PCP Family Medicine; Referring Provider Nurse Practitioner Critical Care Medicine; Visit Provider Surgery | DX: S81.801D Unspecified open wound, right lower leg, subsequent encounter (principal); Z86.718 Personal history of other venous thrombosis and embolism | CPT/HCPCS: 99213 ==

== ENCOUNTER → 2022-07-08 08:46 | Outpatient (CLI) | payer MEDICARE, OTHER, SELFPAY | PROVIDERS: Family Provider Nurse Practitioner Critical Care Medicine; PCP Family Medicine; Referring Provider Family Medicine; Visit Provider Surgery | DX: R60.0 Localized edema (principal) | CPT/HCPCS: 99212; 99213 ==

== ENCOUNTER → 2022-07-22 08:46 | Outpatient (CLI) | payer MEDICARE, OTHER, SELFPAY | PROVIDERS: Family Provider Nurse Practitioner Critical Care Medicine; PCP Family Medicine; Referring Provider Nurse Practitioner Critical Care Medicine; Visit Provider Surgery | DX: S81.801D Unspecified open wound, right lower leg, subsequent encounter (principal) | CPT/HCPCS: 99213 ==

== ENCOUNTER → 2022-08-18 09:16 | Outpatient (CLI) | payer MEDICARE, OTHER, SELFPAY ==
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
== END ==
PROVIDERS: Family Provider Nurse Practitioner Critical Care Medicine; PCP Family Medicine; Referring Provider Nurse Practitioner Family; Visit Provider Nurse Practitioner Family
DX: S93.421A Sprain of deltoid ligament of right ankle, initial encounter (principal); S86.011A Strain of right Achilles tendon, initial encounter; M19.071 Primary osteoarthritis, right ankle and foot; M25.471 Effusion, right ankle
CPT/HCPCS: 73721

== ENCOUNTER → 2022-09-20 08:05 | Outpatient (CLI) | payer MEDICARE, OTHER, SELFPAY ==
[2022-09-20 09:49] LABS: Add Manual Diff / Slide Review NO; Basophils Absolute Auto 100 /uL (0-100); Eosinophils Absolute Auto 200 /uL (0-450); Eosinophils Percent Auto 2.8 % (2-4); Hematocrit 43.7 % (41-53); Hemoglobin 14.2 g/dL (13.5-17.5); Lymphocytes Absolute Auto 2100 /uL (1100-4500); Lymphocytes Percent Auto 28.3 % (25-40); Mean Corpuscular HGB Conc 32.6 % (30-36); Mean Corpuscular Hemoglobin 27.8 PG (26-34); Mean Corpuscular Volume 85.3 fL (80-100); Monocytes Absolute Auto 500 /uL (0-900); Neutrophils Absolute Auto 4600 /uL (1500-7000); Neutrophils Percent Auto 60.9 % (50-75); Platelet Count 233 X10^3/uL (150-400); Red Blood Cell Count 5.13 X10^6/uL (4.5-5.9); Red Cell Distribution Width 15.4 % (11.6-14.8); White Blood Cell Count 7.6 X10^3/uL (4.5-11.0)
[2022-09-20 10:18] LABS: Alanine Aminotransferase 23 IU/L (<50); Albumin 3.7 g/dL (3.5-5.0); Albumin Globulin Ratio 1.4 (1.0-2.8); Alkaline Phosphatase 69 U/L (38-126); Aspartate Aminotransferase 24 IU/L (17-59); BUN Creatinine Ratio 22.7 (6-22); Blood Urea Nitrogen 22 mg/dL (9-20); Calcium 8.3 mg/dL (8.4-10.2); Carbon Dioxide 28 mmol/L (22-32); Chloride 106 mmol/L (98-107); Cholesterol 132 mg/dL (140-199); Estimated Glomerular Filt Rate > 60 mL/min (>60); Globulin 2.6 g/dL (1.7-4.1); Glucose 84 mg/dL (80-110); HDL Cholesterol 39 mg/dL (40-60); HEMOLYSIS < 15 (0-50); LDL Cholesterol Calculated 72 mg/dL (<100); Potassium 4.8 mmol/L (3.4-5.1); Sodium 140 mmol/L (137-145); Total Protein 6.3 g/dL (6.3-8.2); Triglycerides 106 mg/dL (35-150)
[2022-09-20 10:48] LABS: Prostate Specific Antigen Scrn 0.311 ng/mL (0.1-4.0)
== END ==
PROVIDERS: Family Provider Nurse Practitioner Critical Care Medicine; PCP Family Medicine; Referring Provider Family Medicine; Visit Provider Family Medicine
DX: E78.2 Mixed hyperlipidemia (principal); Z12.5 Encounter for screening for malignant neoplasm of prostate; I10 Essential (primary) hypertension; I26.99 Other pulmonary embolism without acute cor pulmonale; I48.91 Unspecified atrial fibrillation
CPT/HCPCS: 36415; 80053; 80061; 82043; 82570; 85025; G0103

== ENCOUNTER → 2023-08-14 10:36 | Outpatient (CLI) | payer MEDICARE, OTHER, SELFPAY ==
--- NOTE | 2023-08-14 10:39 | DI.RAD.S_ITS ---
PROCEDURE: XR CHEST 2V INDICATIONS: cough, congestion, fever TECHNIQUE: 2 views of the chest were acquired. COMPARISON: [facility], [place], XR CHEST 2V, 05/05/2018, 11:25. FINDINGS: Surgical changes and devices: None. Lungs and pleura: Lungs are clear. No pleural effusions or pneumothorax. Mediastinum: Mediastinal contours are normal. Heart size is normal. Bones and chest wall: No suspicious bony abnormalities. Soft tissues appear unremarkable. IMPRESSION: No acute cardiopulmonary abnormality is seen. Dictated by: Adrian Rodriguez M.D. on 08/14/2023 at 12:47 Approved by: Adrian Rodriguez M.D. on 08/14/2023 at 12:47
== END ==
PROVIDERS: Family Provider Nurse Practitioner Critical Care Medicine; PCP Family Medicine; Referring Provider Nurse Practitioner Family; Visit Provider Nurse Practitioner Family
DX: R09.89 Other specified symptoms and signs involving the circulatory and respiratory systems (principal); R05.9 Cough, unspecified; R50.9 Fever, unspecified
CPT/HCPCS: 71046

== ENCOUNTER → 2024-08-26 08:20 | Outpatient (CLI) | payer MEDICARE, OTHER, SELFPAY ==
[2024-08-26 09:03] LABS: Hemoglobin A1C% w Est Avg Glu 5.4 % (4.0-6.0)
[2024-08-26 09:52] LABS: Alanine Aminotransferase 21 IU/L (<50); Albumin 4.1 g/dL (3.5-5.0); Albumin Globulin Ratio 1.5 (1.0-2.8); Alkaline Phosphatase 87 U/L (38-126); Aspartate Aminotransferase 27 IU/L (17-59); BUN Creatinine Ratio 17.3 (6-22); Bilirubin Total 1.1 mg/dL (0.2-1.3); Blood Urea Nitrogen 19 mg/dL (9-20); Calcium 8.9 mg/dL (8.4-10.2); Carbon Dioxide 29 mmol/L (22-32); Chloride 103 mmol/L (98-107); Cholesterol 165 mg/dL (140-199); Estimated Glomerular Filt Rate > 60 mL/min (>60); Globulin 2.7 g/dL (1.7-4.1); Glucose 92 mg/dL (70-99); HDL Cholesterol 48 mg/dL (40-60); HEMOLYSIS < 15 (0-50); LDL Cholesterol Calculated 98 mg/dL (<100); Sodium 138 mmol/L (137-145); Total Protein 6.8 g/dL (6.3-8.2); Triglycerides 95 mg/dL (35-150)
[2024-08-27 04:10] LABS: Apolipoprotein B 80 mg/dL (<90)
[2024-08-29 16:38] LABS: Lipoprotein (a) 101.2 nmol/L (<75.0)
== END ==
LOC: LAB 08:23
PROVIDERS: Family Provider Nurse Practitioner Critical Care Medicine; PCP Family Medicine; Referring Provider Family Medicine; Visit Provider Family Medicine
DX: R73.01 Impaired fasting glucose (principal); E78.2 Mixed hyperlipidemia; Z13.6 Encounter for screening for cardiovascular disorders
CPT/HCPCS: 36415; 80053; 80061; 82172; 83036; 83695

== ENCOUNTER → 2024-09-02 09:22 | Outpatient (CLI) | payer MEDICARE, OTHER, SELFPAY ==
[2024-09-02 10:47] LABS: Creatinine Urine Random 239.48 mg/dL
[2024-09-02 10:51] LABS: Microalbumin Urine Random 0.7 mg/dL (0-1.6)
== END ==
PROVIDERS: Family Provider Nurse Practitioner Critical Care Medicine; PCP Family Medicine; Referring Provider Family Medicine; Visit Provider Family Medicine
DX: E78.2 Mixed hyperlipidemia (principal); R73.01 Impaired fasting glucose; Z13.6 Encounter for screening for cardiovascular disorders
CPT/HCPCS: 82043; 82570